=== PATIENT | female | born 1990 | race Caucasian/White ===

== ENCOUNTER 2022-04-21 19:29 | Emergency (ER) | payer MEDICAID ==
[~2022-04-21] VITALS: Ht 157.5 cm; Wt 68.1 kg
[2022-04-21 19:38] VITALS: BP 133/64
== END 2022-04-21 20:07 | disposition left against medical advice (07) ==
LOC: ER 19:30
DX: R10.13 Epigastric pain (principal); Z53.21 Procedure and treatment not carried out due to patient leaving prior to being seen by health care provider

== ENCOUNTER 2022-12-11 08:45 | Emergency (ER) | payer MEDICAID ==
[~2022-12-11] VITALS: Ht 157.5 cm; Wt 62.0 kg
[2022-12-11 09:02] LABS: BASOPHILS # (AUTO) 0.1 X10'3 (0-0.2); BASOPHILS % (AUTO) 0.6 % (0-1); EOSINOPHILS # (AUTO) 0.1 X10'3 (0-0.9); EOSINOPHILS % (AUTO) 1.1 % (0-6); HEMATOCRIT 44.2 % (35.0-45.0); HEMOGLOBIN 14.8 g/dl (12.0-16.0); LYMPHOCYTES # (AUTO) 2.6 X10'3 (1.1-4.8); LYMPHOCYTES % (AUTO) 32.6 % (21-51); MEAN CORPUSCULAR HEMOGLOBIN 32.5 PG (27.0-31.0); MEAN CORPUSCULAR HGB CONC 33.5 g/dL (33.0-36.5); MEAN PLATELET VOLUME 7.6 FL (7.4-10.4); MONOCYTES # (AUTO) 0.7 X10'3 (0-0.9); MONOCYTES % (AUTO) 8.2 % (2-12); NEUTROPHILS # (AUTO) 4.6 X10'3 (1.8-7.7); NEUTROPHILS % (AUTO) 57.5 % (42-75); PLATELET COUNT 290 X10'3 (140-440); RED BLOOD COUNT 4.56 X10'6 (4.20-5.60); RED CELL DISTRIBUTION WIDTH 12.5 % (11.5-14.5)
[2022-12-11 09:22] LABS: ALANINE AMINOTRANSFERASE 22 U/L (12-78); ALBUMIN 3.9 G/DL (3.4-5.0); ALBUMIN/GLOBULIN RATIO 1.1 (1.1-1.5); ALKALINE PHOSPHATASE 89 IU/L (46-116); ANION GAP 7 (8-16); ASPARTATE AMINO TRANSFERASE 19 U/L (10-37); BILIRUBIN,TOTAL 0.7 MG/DL (0.1-1.0); BLOOD UREA NITROGEN 8 MG/DL (7-18); BUN/CREATININE RATIO 10.5 (6.6-38.0); CHLORIDE 106 MMOL/L (99-107); CREATININE 0.76 MG/DL (0.40-0.90); GLUCOSE 94 MG/DL (70-104); POTASSIUM 3.9 MMOL/L (3.5-5.1); SODIUM 140 MMOL/L (135-145); TOTAL CARBON DIOXIDE 26.9 MMOL/L (24-32); TOTAL PROTEIN 7.3 G/DL (6.4-8.2); eGFR 89 ML/MIN
[2022-12-11 09:29] LABS: MAGNESIUM 1.9 MG/DL (1.5-2.4)
--- NOTE | 2022-12-11 10:40 | NUR ---
Dr. Champion at bedside interviewing patient. Dr. Champion aware of the low HR episode as low as 44.
--- NOTE | 2022-12-11 10:44 | NUR ---
Patient reported to me that she just had menstrual period December 02, 2022
[2022-12-11] MEDS ORDERED: morphine 4 MG/ML inj SYRINge IV ONE ×2 (11:00→12:15)
[2022-12-11] MEDS ORDERED: ketorolac tromethamine 15mg/ml inj. IV ONE (11:00)
[2022-12-11] MEDS ORDERED: LORazepam 2 mg/ml vial IV ONE (11:00)
--- NOTE | 2022-12-11 11:17 | NUR ---
Morphine IV given to patient. Will reeval pain in 30-45 minutes.
[2022-12-11 11:18] LABS: D-DIMER 0.35 MG/L FEU (0-0.50)
[2022-12-11 11:20] LABS: HCG SERUM QL NEGATIVE
--- NOTE | 2022-12-11 11:53 | NUR ---
Patient refused Toradol and Ativan IV when I offered it Addendum: 12/11/22 at 1154 by IDALIA Patient states "I'm fine now!"
[2022-12-11 13:01] VITALS: BP 117/60
--- NOTE | 2022-12-11 13:08 | NUR ---
Patient was notified that she has discharge order and will be discharge after an extra dose of Morphine is given. Morphine IV given as ordered. Patient's boyfriend at bedside was arguing that patient has "stroke". Patient was told that her troponins and d dimer were negative. Pt alert/oriented x4, no facial asymmetry or aphasia noted since she came to the ER.
--- NOTE | 2022-12-11 13:28 | NUR ---
Akira Melendez went to patient's bedside talked to patient and the boyfriend to answer their questions.
== END 2022-12-11 13:36 | disposition home or self-care (01) ==
LOC: ER 08:45
DX: R07.89 Other chest pain (principal); R05.9 Cough, unspecified; J45.909 Unspecified asthma, uncomplicated; F12.90 Cannabis use, unspecified, uncomplicated; Z87.891 Personal history of nicotine dependence; Z88.0 Allergy status to penicillin; Z88.1 Allergy status to other antibiotic agents
CPT/HCPCS: 36415; 71046; 80053; 83735; 83880; 84484; 84703; 85025; 85379; 93005; 96374; 96376; 99285; J2270

== ENCOUNTER 2023-03-11 23:53 | Emergency (ER) | payer MEDICAID ==
[~2023-03-11] VITALS: Ht 157.5 cm; Wt 62.2 kg
[2023-03-12 00:02] VITALS: BP 137/92
[2023-03-12] MEDS ORDERED: acetaminophen 325mg tablet PO STA (00:50)
== END 2023-03-12 01:01 | disposition home or self-care (01) ==
LOC: ER 23:54
DX: M25.522 Pain in left elbow (principal); J45.909 Unspecified asthma, uncomplicated; F12.90 Cannabis use, unspecified, uncomplicated; Z98.890 Other specified postprocedural states; Z88.0 Allergy status to penicillin; Z88.1 Allergy status to other antibiotic agents; W18.39XA Other fall on same level, initial encounter; Y93.89 Activity, other specified; Y92.89 Other specified places as the place of occurrence of the external cause; Y99.8 Other external cause status
CPT/HCPCS: 73080; 99283; A4565

== ENCOUNTER 2023-04-19 19:02 | Emergency (ER) | payer MEDICAID ==
[~2023-04-19] VITALS: Ht 157.5 cm; Wt 61.4 kg
[2023-04-19 20:05] VITALS: BP 115/68
[2023-04-19] MEDS ORDERED: ketorolac trometh inj. 60 MG/2 ML VIAL IM ONE (21:35)
[2023-04-19] MEDS ORDERED: IBUP-1986 PO (22:01)
== END 2023-04-19 22:18 | disposition home or self-care (01) ==
LOC: ER 19:03
DX: M53.3 Sacrococcygeal disorders, not elsewhere classified (principal); F12.90 Cannabis use, unspecified, uncomplicated; Z88.0 Allergy status to penicillin; Z91.041 Radiographic dye allergy status; W19.XXXA Unspecified fall, initial encounter; Y93.89 Activity, other specified; Y92.89 Other specified places as the place of occurrence of the external cause; Y99.8 Other external cause status
CPT/HCPCS: 72220; 96372; 99283; J1885

== ENCOUNTER 2023-05-01 13:13 | Emergency (ER) | payer MEDICAID ==
[~2023-05-01] VITALS: Ht 157.5 cm; Wt 60.8 kg
[~2023-05-01 13:13] MED LIST: IBUP-1986 PO
[2023-05-01 13:20] VITALS: TEMP 98.9
[2023-05-01] MEDS ORDERED: ketorolac tromethamine 15mg/ml inj. IM ONE (14:50)
[2023-05-01] MEDS ORDERED: HYDROcodone/acetaminophen 5mg/325mg tablet PO ONE (17:25)
[2023-05-01 18:29] VITALS: BP 108/62; PULSE 65; O2SAT 99
[2023-05-01] MEDS ORDERED: NAPR500T6 PO (18:46)
[2023-05-01] MEDS ORDERED: HYDR-3965 PO (18:58)
[2023-05-01 19:08] VITALS: RESP 18
== END 2023-05-01 19:11 | disposition home or self-care (01) ==
LOC: ER 13:14
DX: M53.3 Sacrococcygeal disorders, not elsewhere classified (principal); J45.909 Unspecified asthma, uncomplicated; F12.10 Cannabis abuse, uncomplicated; Z88.0 Allergy status to penicillin; Z88.1 Allergy status to other antibiotic agents; W19.XXXA Unspecified fall, initial encounter; Y93.89 Activity, other specified; Y92.89 Other specified places as the place of occurrence of the external cause; Y99.8 Other external cause status
CPT/HCPCS: 72074; 72220; 96372; 99284; J1885

== ENCOUNTER 2023-05-19 23:51 | Emergency (ER) | payer MEDICAID ==
[~2023-05-19] VITALS: Ht 157.5 cm; Wt 61.0 kg
[~2023-05-19 23:51] MED LIST changes: +HYDR-3965 PO; +NAPR500T6 PO
[2023-05-20 01:05] VITALS: BP 113/64; PULSE 83; RESP 16; TEMP 97.9; O2SAT 98
== END 2023-05-20 04:51 | disposition left against medical advice (07) ==
LOC: ER 23:51
DX: S61.214A Laceration without foreign body of right ring finger without damage to nail, initial encounter (principal); Z53.21 Procedure and treatment not carried out due to patient leaving prior to being seen by health care provider; X58.XXXA Exposure to other specified factors, initial encounter; Y93.89 Activity, other specified; Y92.89 Other specified places as the place of occurrence of the external cause; Y99.8 Other external cause status
CPT/HCPCS: 99281

== ENCOUNTER 2024-05-14 00:05 | Emergency (ER) | payer MEDICAID ==
[~2024-05-14] VITALS: Ht 160 cm; Wt 69.7 kg
[~2024-05-14 00:05] MED LIST changes: -HYDR-3965 PO
[2024-05-14 00:10] VITALS: TEMP 98
[2024-05-14 01:13] LABS: BASOPHILS # (AUTO) 0.1 X10'3 (0-0.2); BASOPHILS % (AUTO) 0.5 % (0-1); EOSINOPHILS # (AUTO) 0.3 X10'3 (0-0.9); EOSINOPHILS % (AUTO) 2.2 % (0-6); HEMATOCRIT 35.8 % (35.0-45.0); HEMOGLOBIN 12.2 g/dl (12.0-16.0); LYMPHOCYTES # (AUTO) 4.7 X10'3 (1.1-4.8); LYMPHOCYTES % (AUTO) 42.3 % (21-51); MEAN CORPUSCULAR HEMOGLOBIN 32.1 PG (27.0-31.0); MEAN CORPUSCULAR VOLUME 94.2 FL (78-98); MEAN PLATELET VOLUME 7.4 FL (7.4-10.4); MONOCYTES # (AUTO) 1.1 X10'3 (0-0.9); MONOCYTES % (AUTO) 9.4 % (2-12); NEUTROPHILS # (AUTO) 5.1 X10'3 (1.8-7.7); NEUTROPHILS % (AUTO) 45.6 % (42-75); PLATELET COUNT 314 X10'3 (140-440); RED CELL DISTRIBUTION WIDTH 12.6 % (11.5-14.5); WHITE BLOOD COUNT 11.2 X10'3 (4.5-11.0)
[2024-05-14 01:19] VITALS: BP 116/64; PULSE 60; O2SAT 98
[2024-05-14 01:21] LABS: D-DIMER 0.53 MG/L FEU (0-0.50)
[2024-05-14 01:26] LABS: ALANINE AMINOTRANSFERASE 19 U/L (12-78); ALBUMIN 3.1 G/DL (3.4-5.0); ALBUMIN/GLOBULIN RATIO 0.9 (1.1-1.5); ALKALINE PHOSPHATASE 109 IU/L (46-116); ANION GAP 7 (8-16); ASPARTATE AMINO TRANSFERASE 13 U/L (10-37); BILIRUBIN,TOTAL 0.2 MG/DL (0.1-1.0); BLOOD UREA NITROGEN 7 MG/DL (7-18); BUN/CREATININE RATIO 7.9 (10.0-20.0); CALCIUM 8.5 MG/DL (8.5-10.1); CHLORIDE 107 MMOL/L (99-107); CREATININE 0.89 MG/DL (0.40-0.90); GLUCOSE 94 MG/DL (70-104); POTASSIUM 3.4 MMOL/L (3.5-5.1); SODIUM 142 MMOL/L (135-145); TOTAL CARBON DIOXIDE 28.5 MMOL/L (24-32); TOTAL PROTEIN 6.5 G/DL (6.4-8.2); eCRCL 75 ML/MIN; eGFR 74 ML/MIN
[2024-05-14 01:33] LABS: PRO BRAIN NATRIURETIC PEPTIDE 320 PG/ML (0-125)
[2024-05-14] MEDS: acetaminophen 325mg tablet PO ONE (01:44)
[2024-05-14 01:45] VITALS: RESP 14
[2024-05-14] MEDS: proCHLORperazine 10 MG/2 ml inj IM ONE (01:45)
[2024-05-14] MEDS: ketorolac trometh. 30mg/ml inj. IM ONE (01:45)
== END 2024-05-14 01:52 | disposition home or self-care (01) ==
LOC: ER 00:07
DX: R51.9 Headache, unspecified (principal); F12.90 Cannabis use, unspecified, uncomplicated; J45.909 Unspecified asthma, uncomplicated; Z98.890 Other specified postprocedural states; Z88.0 Allergy status to penicillin; Z88.1 Allergy status to other antibiotic agents; Z79.1 Long term (current) use of non-steroidal anti-inflammatories (NSAID)
CPT/HCPCS: 36415; 71045; 80053; 83880; 84484; 85025; 85379; 93005; 96372; 99285; J0780; J1885